=== PATIENT | male | born 1955 | race Caucasian/White ===

== ENCOUNTER → 2016-07-18 | Outpatient (CLI) | payer MEDICARE ==
[~2016-07-18] MED LIST: ALPRAZOLAM PO; ASPIRINEC PO; ATENOLOL PO; CALAN PO; COUMADIN PO; KLOR-CON PO; LISINOPRIL PO; MAXZIDE 75/50 T1 TAB PO; MINOXIDIL PO; PACERONE PO; VICODIN PO
--- NOTE | ~2016-07-18 | MR17 ---
[facility] A Service of [facility] RADIOLOGY TEXT RESULTS PATIENT: AR MOSHER LOCATION: [facility] : 51 UNIT #: [id number] AGE: [address]: Samuel Anderson MD SEX: M ORDER DR: [id number] [id number] MR#: [id number] #: [id number] NAME: AR MOSHER : 1955 SEX: M STUDY DATE/TIME: 07/18/2016 11:20 UNIT: [facility] ROOM: STUDY DESCRIPTION: MR Brain WWo Contrast Attending Physician: Samuel Anderson M.D. Referring Physician: Samuel Anderson M.D. Ordering Physician: Samuel Anderson M.D. Primary Care Physician: Samuel Anderson M.D. MRI CENTER REPORT This report is preliminary unless electronic signature is present. EXAM MRI brain with and without INDICATIONS No known injury or surgery. Patient complains of worsening memory loss for a year; family has noticed the changes. History of hypertension, atrial fibrillation. COMMENTS MRI of the brain was performed prior to and following intravenous administration 20 mL MultiHance. FINDINGS There is no evidence for recent ischemic insult on the diffusion series. There is no MRI evidence for intracranial hemorrhage. There is no extraaxial fluid collection or intracranial mass effect. There is a small amount of fluid or inflammatory change in the right side mastoid air cells. There is partial opacification of the ethmoid air cells right greater than left and mucosal disease in the maxillary antra. There is generalized atrophy greater than expected for age group. This includes disproportionate volume loss in the bilateral parietal lobes and borderline disproportionate volume loss in the temporal lobes. Please correlate for clinical evidence of an Alzheimer type dementia given the pattern described. Perivascular spaces are prominent in general. The major intracranial flow voids are maintained. There is no Chiari-I malformation. Following contrast administration, there is no pathologic intracranial enhancement. No intracranial mass lesion is suspected. There is mild white matter signal abnormality nonspecific likely due to small vessel disease amount overall not unexpected in age group. IMPRESSION 1. There is atrophy greater than expected for stated age with somewhat disproportionate volume loss in the bilateral parietal lobes and [facility] A Service of [facility] & [facility] RADIOLOGY TEXT RESULTS PATIENT: AR MOSHER LOCATION: [facility] : 51 UNIT #: [id number] AGE: [address]: Samuel Anderson MD SEX: M ORDER DR: probably temporal lobes. This pattern of atrophy is associated with Alzheimer type dementia but please correlate further clinically. Imaging findings are not pathognomonic. 2. No recent ischemic insult. 3. Mild probable sequelae of small vessel disease. Dictated by... Ashley Gordon M.D. THIS IS AN ELECTRONICALLY VERIFIED REPORT Ashley Gordon M.D. at 07/19/2016 2:15 PM SAC/to TD: 07/18/2016 21:24 JOB #: [id number] MRI CENTER REPORT Page 1 of 1
[2016-07-18 11:51] LABS: POC - CREATININE 0.77 mg/dL (0.64-1.27); POC - GFR >60.0 mL/min (>60)
== END | disposition home or self-care (01) ==
LOC: SMRI 10:59
PROVIDERS: Family Medicine
DX: R41.3 Other amnesia (principal); G31.89 Other specified degenerative diseases of nervous system; I10 Essential (primary) hypertension
CPT/HCPCS: 70553; 82565; A9581